=== PATIENT | male | born 1970 | race Caucasian/White ===

== ENCOUNTER 2016-09-09 16:43 | Emergency (ER) | payer MEDICAID ==
[2016-09-09 19:09] VITALS: TEMP 97.7; BMI 25.0
[2016-09-09 19:24] LABS: AUTOMATED BASOPHIL 1.5 % (0-2); AUTOMATED EOSINOPHIL 2.6 % (0-5); AUTOMATED LYMPH 24.7 % (17-44); AUTOMATED NEUTROPHIL 61.2 % (45-76); MPV 8.6 fL (7.4-10.4)
[2016-09-09 19:33] LABS: BLOOD UREA NITROGEN 8 MG/DL (9-20); CALCIUM 9.1 MG/DL (8.4-10.2); CALCULATED OSMOLALITY 267 MOs/Kg (270-290); CHLORIDE 101 mEq/L (98-107); ETOH-MGDL < 10 mg/dL; GLUCOSE 94 MG/DL (70-99); SODIUM LEVEL 140 mEq/L (137-146); TOTAL PROTEIN 7.6 G/DL (6.3-8.2)
[2016-09-09 19:42] LABS: ALL NEG? NO
[2016-09-09 19:49] LABS: MDMA* NEG (NEGATIVE); METHAMPHETAMINES NEG (NEGATIVE); OXYCODONE *POSITIVE* (NEGATIVE)
[2016-09-09 19:55] LABS: LEUKOCYTES/URINE NEG (NEGATIVE); NITRITE/URINE NEG (NEGATIVE); URINE OCCULT BLOOD NEG (NEG/TRACE)
--- NOTE | 2016-09-09 21:58 | EDPRACDOC ---
<HudsonGoldie - Last Filed: 09/09/16 23:39> - General Information Information Source: Patient Mode of Arrival: Law Enforcement - History of Present Illness Onset: 24 hrs SCARRER HPI: PT PRESENTS TO ED WITH IVC PAPERS FROM [facility] FOR 24HRS OF FREQUENT FALLS, CONFUSION MEMORY LOSS, RAMBLING CONVERSATION, WEAKNESS, CHANGE IN THOUGHTS ILLOGICAL THOUGHTS. NO FACIAL DROOPING OR SLURRED SPEECH AT THIS TIME. PT DOES HAVE PERIODS WHERE HE DOES NOT MAKE SENSE AND IS TALKING ABOUT SOMETHING COMPLETELY DIFFERENT THAN THE QUESTION ASKED. Reason for Seeking Treatment: Other (IVC BY Outside[facility]in.) Presents With: Reports: Unclear Thinking, Bizarre Behavior, Confusion Expresses: Reports: None Suicidal Plan: Reports: None Suicidal Attempt: Reports: N Stressors: Reports: None Relevant History: Reports: Other (SCHIZOAFFECTIVE BIPOLAR TYPE.) Medication Compliance: N/A Able to Care for Self: No Able to Control Self: No Associated Signs and Symptoms: Reports: Other (AMS, ILLOGICAL THOUGHTS, CONFUSION, FREQ FALLS IN LAST 24HRS.) <Bradley Bronson - Last Filed: 09/10/16 00:06> - General Information Chief Complaint: Psychiatric Illness Stated Complaint: IVP PSYCH EVAL Time Seen by Provider: 09/09/16 21:43 Home Medications: Home Medications Benztropine Mesylate 1 mg PO BID 09/09/16 Fenofibrate 160 mg PO QHS 09/09/16 Mirtazapine 45 mg PO HS 09/09/16 Nitroglycerin [Nitrostat] 0.4 mg SL [id number] PRN 09/09/16 Omeprazole 20 mg PO BID 09/09/16 Ondansetron HCl [Zofran] 8 mg PO Q8H PRN 09/09/16 Perphenazine 8 mg PO QID 09/09/16 Simvastatin 20 mg PO QHS 09/09/16 Trazodone HCl 150 mg PO DAILY PRN 09/09/16 Trazodone HCl 300 mg PO QHS 09/09/16 Allergies/Adverse Reactions: Allergies Allergy/AdvReac Type Severity Reaction Status Date / Time No Known Allergies Allergy Verified 07/19/14 03:19 ED Past Medical History - History Reviewed Yes Nurses notes reviewed and agree except as marked Travel Outside of [place] in the Last 3 Months?: No - Patient Medical History Cardiac History: Reports: Hypertension, Hypercholesterolemia Psychological History: Reports: Schizophrenia (SCHIZOAFFECTIVE BIPOLAR TYPE). Denies: Depression Systemic History: Denies: Cancer - Social Medical History Smoking Status: Heavy tobacco smoker (5 or more cigarettes/day or daily pipe/ cigar) ETOH: None Substance Abuse: None Lives With: Other Lives In: Home <Bradley Bronson - Last Filed: 09/10/16 00:06> EDM Review of Systems - Review of Systems ROS Negative Except as Marked: Yes All systems reviewed and were negative except as marked ROS Unobtainable: Yes Review of systems cannot be obtained due to the patient's medical condition (CONFUSION) Constitutional: Weakness. negative: Chills, Fever, Fatigue, Loss of Appetite Eyes: No Symptoms Reported. negative: Redness, Blurred Vision, Double Vision, Discharge, Pain, Light Sensitive, Photophobia Ears: No Symptoms Reported. negative: Pain, Hearing Loss, Drainage, Ear Pulling Throat: No Symptoms Reported. negative: Pain, Swelling Nose: No Symptoms Reported. negative: Congestion, Bleeding, Discharge, Injection, Swelling, Deformity, Ecchymosis, Tender, Abrasion, Laceration Mouth: No Symptoms Reported. negative: Pain, Drooling Respiratory: No Symptoms Reported. negative: Cough, Brassy Cough, Barky Cough, Shortness of Breath, Wheezing, Hemoptysis Cardiovascular: No Symptoms Reported. negative: Chest Pain, Palpitations, Syncope, Edema, Orthopnea, PND, Skin Mottling, Cyanosis Gastrointestinal: No Symptoms Reported. negative: Pain, Constipation, Nausea, Vomiting, Diarrhea, Melena, Formula Intolerance Genitourinary: No Symptoms Reported. negative: Dysuria, Hematuria, Frequency, Discharge, Bleeding, Testicular Pain, Neurological: Weakness, Mood Changes, Memory Changes, Changes in Orientation. negative: Dizziness, Gait Difficulty, Headache, Numbness, Seizure, Speech Difficulty Musculoskeletal: No Symptoms Reported. negative: Neck, Chestwall, Ribs, Back, Shoulder, Arm, Elbow, Forearm, Wrist, Hand, Pelvis, Hip, Femur, Knee, Leg, Ankle , Foot Integumentary: No Symptoms Reported. negative: Itching, Rash, Bruising, Wound Allergic/Immunologic: No Symptoms Reported. negative: Hives, Itching Hematologic: No Symptoms Reported. negative: Lymphadenopathy, Easy Bruising, Easy Bleeding Endocrine: No Symptoms Reported. negative: Weight Gain, Weight Loss Psychiatric: No Symptoms Reported. negative: Anxiety, Depression, Hallucinations, Insomnia, Suicidal <Bradley Bronson - Last Filed: 09/10/16 00:06> - Physical Exam Last recorded Vital Signs: Last Vital Signs Temp 97.7 F 09/09/16 17:35 Pulse 78 09/09/16 22:56 Resp 18 09/09/16 22:56 BP 104/78 09/09/16 22:56 Pulse Ox 94 09/09/16 22:56 Oxygen Pulse Oxygen Saturation 94 O2 Device Room Air Oxygen Flow Rate Fraction of Inspired Oxygen ( FIO2) <Goldie Hudson - Last Filed: 09/09/16 23:39> - Physical Exam Constitutional: Alert (Awake), Confused (MILD) Oriented to: Time, Person, Place Last recorded Vital Signs: Last Vital Signs Temp 97.7 F 09/09/16 17:35 Pulse 76 09/09/16 21:45 Resp 18 09/09/16 21:45 BP 124/83 09/09/16 21:45 Pulse Ox 98 09/09/16 21:45 Oxygen Pulse Oxygen Saturation 98 O2 Device Room Air Oxygen Flow Rate Fraction of Inspired Oxygen ( FIO2) - HEENT Head: Normal ( normocephalic) Eye Exam: Normal (PERRL, EOMI, Sclera white) Oropharynx: Normal (Pharynx:Moist without exudate,Gums-no swelling) Tympanic Membrane: Normal ENT EAC: Normal TMJ: Normal Nose: No Symptoms Reported (septum midline) Neck: Normal (FROM, trachea at midline) - Respiratory/Cardiovascular Respiratory: Other (COARSE BREATH SOUNDS) Cardiovascular: Normal (RRR without murmur, gallop or rub) - GI Auscultation: Normal (NABS) Palpation: Normal (Soft,No rebound or guarding, non distended) Tenderness: Non tender Etienne's Sign: Negative - Bladder: Normal - Musculoskeletal Back: Normal (Non-Tender) Extremities: Normal (Normal tone, Pulses 2+ No cyanosis or edema, FROM) - Integumentary Skin: Normal, Warm, Dry Lymphatics: Normal (no adenopathy) - Neurologic Memory Impaired: Short-term Motor Function: Abnormal (LEFT SIDE WEAKNESS) Cranial Nerve: Normal (CN II-X11 intact sensation, strength 5/5) Cerebellar: Past-Pointing (LEFT FINGER TO NOSE WAS SLOWER THAN RIGHT AND PT DID MISS MULTIPLE TIMES) Mood Description: Normal Thought: Coherent Perception: Normal <Bradley Bronson - Last Filed: 09/10/16 00:06> - Re-evaluation Re-evaluation 3 Re-evaluation Time: 23:55 ACUTE / MILD COGNITIVE CHANGES. BUT MY EXAM SHOWS THE PATIENT IS ALERT AND ORIENTED X4. ACTUALLY WELL INFORMED AND CAN CONVERSE WITH CURRENT EVENTS. WE SUSPECT HE HAS HAD A SMALL STROKE CONSIDERING LEFT SIDED WEAKNESS (MILD). WE HAVE RECOMMENDED INPATIENT EVALUATION, AND FACT HAVE CONSULTED INTERNAL MEDICINE, HOWEVER THE PATIENT DOES NOT WANT TO STAY IN THE HOSPITAL UNDER ANY GIVEN CIRCUMSTANCES. WHEN DISCUSSED WITH THE PATIENT THAT THE POSSIBILITY OF HIM GETTING WORSE AT HOME IS DISTINCTLY REAL, WHICH COULD CAUSE FALLING AND HEAD INJURY OR HIP FRACTURE OR OTHER INJURY, AND MAY RESULT IN . THE PATIENT STATES THERE ARE THINGS THAT ARE WORSENED THAT HE DOES NOT WANTS AN HOSPITAL FOR ANY GIVEN REASON HE WILL FOLLOW UP WITH HIS PCP TOMORROW AND STATES HE WILL TAKE HIS ASPIRIN DIRECTED AT HOME. THE PATIENT APPEARS TO BE CAPABLE OF MAKING AN INFORMED DECISION SHE HAS MADE AN INFORMED DECISION, HE DOES NOT WANT [facility] FOR [facility] CARE AT THIS TIME. IS ALERT AND ORIENTED, CURRENTLY HAVING NO HALLUCINATIONS WHATSOEVER, EITHER AUDITORY OR VISUAL. HAS NO INDICATION WITHDRAWAL SYNDROME. PATIENT IS CAPABLE MAKING A INFORMED DECISION HE HAS MADE 1 HE DOES NOT WANT STAY IN HOSPITAL. I SEE NO INDICATION TO HOLD THE PATIENT AGAINST HIS WILL. INVOLUNTARY COMMITMENT WAS TAKEN OUT EARLIER TODAY WILL BE REVERSED. AND THE PATIENT WILL BE ALLOWED TO BE DISCHARGED HOME WITH HIS FAMILY. - Results 09/09/16 19:11 09/09/16 19:11 WBC 11.7 xk/uL (3.8-10.8) H 09/09/16 19:11 RBC 4.98 xM/uL (4.70-6.10) 09/09/16 19:11 Hgb 14.6 g/dL (14.0-18.0) 09/09/16 19:11 Hct 44.3 % (42-52) 09/09/16 19:11 MCV 89 fL (80-94) 09/09/16 19:11 MCH 29.4 pg (27-32) 09/09/16 19:11 MCHC 33.0 g/dl (33-36) 09/09/16 19:11 RDW 12.8 % (11.5-14.5) 09/09/16 19:11 Plt Count 256 xk/uL (130-400) 09/09/16 19:11 MPV 8.6 fL (7.4-10.4) 09/09/16 19:11 Neut % (Auto) 61.2 % (45-76) 09/09/16 19:11 Lymph % (Auto) 24.7 % (17-44) 09/09/16 19:11 [place] % (Auto) 10.0 % (3-10) 09/09/16 19:11 Eos % (Auto) 2.6 % (0-5) 09/09/16 19:11 Baso % (Auto) 1.5 % (0-2) 09/09/16 19:11 Absolute Neuts (auto) 7.14 xk/uL (1.7-8.2) 09/09/16 19:11 Absolute Lymphs (auto) 2.81 xk/uL (0.65-4.75) 09/09/16 19:11 Sodium 140 mEq/L (137-146) 09/09/16 19:11 Potassium 3.7 mEq/L (3.5-5.1) 09/09/16 19:11 Chloride 101 mEq/L (98-107) 09/09/16 19:11 Carbon Dioxide 30 mMOL/L (22-33) 09/09/16 19:11 Anion Gap 13 mEq/L (8-16) 09/09/16 19:11 BUN 8 MG/DL (9-20) L 09/09/16 19:11 Creatinine 0.90 MG/DL (0.66-1.25) 09/09/16 19:11 Estimated GFR (MDRD) > 60 mL/min (>=60) 09/09/16 19:11 Glucose 94 MG/DL (70-99) 09/09/16 19:11 Calculated Osmolality 267 MOs/Kg (270-290) L 09/09/16 19:11 Calcium 9.1 MG/DL (8.4-10.2) 09/09/16 19:11 Total Bilirubin 0.5 MG/DL (0.2-1.3) 09/09/16 19:11 AST 32 IU/L (17-59) 09/09/16 19:11 ALT 32 IU/L (21-72) 09/09/16 19:11 Alkaline Phosphatase 45 IU/L (38-126) 09/09/16 19:11 Total Protein 7.6 G/DL (6.3-8.2) 09/09/16 19:11 Albumin 4.0 G/DL (3.5-5.0) 09/09/16 19:11 Urine Color Yellow 09/09/16 19:18 Urine Clarity Clear 09/09/16 19:18 Urine pH 6.0 (5.0-8.0) 09/09/16 19:18 Ur Specific [place] 1.010 (1.003-1.035) 09/09/16 19:18 Urine Protein Neg (NEG/TRACE) 09/09/16 19:18 Urine Glucose (UA) Neg (NEGATIVE) 09/09/16 19:18 Urine Ketones Neg (NEGATIVE) 09/09/16 19:18 Urine Occult Blood Neg (NEG/TRACE) 09/09/16 19:18 Urine Nitrite Neg (NEGATIVE) 09/09/16 19:18 Urine Bilirubin Neg (NEGATIVE) 09/09/16 19:18 Urine Urobilinogen <2.0 MG/DL (0-1) 09/09/16 19:18 Ur Leukocyte Esterase Neg (NEGATIVE) 09/09/16 19:18 Urine Opiates Screen Neg (NEGATIVE) 09/09/16 19:18 Ur Oxycodone Screen *positive* (NEGATIVE) H 09/09/16 19:18 Urine Methadone Screen Neg (NEGATIVE) 09/09/16 19:18 Ur Barbiturates Screen Neg (NEGATIVE) 09/09/16 19:18 Ur Tricyclics Screen Neg (NEGATIVE) 09/09/16 19:18 Ur Phencyclidine Scrn Neg (NEGATIVE) 09/09/16 19:18 Ur Amphetamines Screen Neg (NEGATIVE) 09/09/16 19:18 U Methamphetamines Scrn Neg (NEGATIVE) 09/09/16 19:18 Urine MDMA Screen Neg (NEGATIVE) 09/09/16 19:18 U Benzodiazepines Scrn *positive* (NEGATIVE) H 09/09/16 19:18 Urine Cocaine Screen Neg (NEGATIVE) 09/09/16 19:18 Ur THC Screen *positive* (NEGATIVE) H 09/09/16 19:18 Plasma/Serum Ethyl Alc % (<0.01) 09/09/16 19:11 Lab Results 09/09/16 09/09/16 09/09/16 19:18 19:18 19:11 WBC 11.7 H RBC 4.98 Hgb 14.6 Hct 44.3 MCV 89 MCH 29.4 MCHC 33.0 RDW 12.8 Plt Count 256 MPV 8.6 Neut % (Auto) 61.2 Lymph % (Auto) 24.7 [place] % (Auto) 10.0 Eos % (Auto) 2.6 Baso % (Auto) 1.5 Absolute Neuts (auto) 7.14 Absolute Lymphs (auto) 2.81 Sodium Potassium Chloride Carbon Dioxide Anion Gap BUN Creatinine Estimated GFR (MDRD) Glucose Calculated Osmolality Calcium Total Bilirubin AST ALT Alkaline Phosphatase Total Protein Albumin Urine Color Yellow Urine Clarity Clear Urine pH 6.0 Ur Specific [place] 1.010 Urine Protein Neg Urine Glucose (UA) Neg Urine Ketones Neg Urine Occult Blood Neg Urine Nitrite Neg Urine Bilirubin Neg Urine Urobilinogen <2.0 Ur Leukocyte Esterase Neg Urine Opiates Screen Neg Ur Oxycodone Screen *positive* H Urine Methadone Screen Neg Ur Barbiturates Screen Neg Ur Tricyclics Screen Neg Ur Phencyclidine Scrn Neg Ur Amphetamines Screen Neg U Methamphetamines Scrn Neg Urine MDMA Screen Neg U Benzodiazepines Scrn *positive* H Urine Cocaine Screen Neg Ur THC Screen *positive* H Plasma/Serum Ethyl Alc 09/09/16 19:11 WBC RBC Hgb Hct MCV MCH MCHC RDW Plt Count MPV Neut % (Auto) Lymph % (Auto) [place] % (Auto) Eos % (Auto) Baso % (Auto) Absolute Neuts (auto) Absolute Lymphs (auto) Sodium 140 Potassium 3.7 Chloride 101 Carbon Dioxide 30 Anion Gap 13 BUN 8 L Creatinine 0.90 Estimated GFR (MDRD) > 60 Glucose 94 Calculated Osmolality 267 L Calcium 9.1 Total Bilirubin 0.5 AST 32 ALT 32 Alkaline Phosphatase 45 Total Protein 7.6 Albumin 4.0 Urine Color Urine Clarity Urine pH Ur Specific [place] Urine Protein Urine Glucose (UA) Urine Ketones Urine Occult Blood Urine Nitrite Urine Bilirubin Urine Urobilinogen Ur Leukocyte Esterase Urine Opiates Screen Ur Oxycodone Screen Urine Methadone Screen Ur Barbiturates Screen Ur Tricyclics Screen Ur Phencyclidine Scrn Ur Amphetamines Screen U Methamphetamines Scrn Urine MDMA Screen U Benzodiazepines Scrn Urine Cocaine Screen Ur THC Screen Plasma/Serum Ethyl Alc - Diagnostic Imaging Head Image interpreted by: Radiologist Patient Name: LAVERNE BRONSON LOC: ED : 1970 AGE: 46 Order Date:09/09/16 Date of Service: Report # [id number] Ord Physician: Bradley Bronson Exam # [id number] Emergency Physician: Goldie Hudson MD Exam(s): [id number] CT/CT HEAD W/O CM CLINICAL DATA: Left-sided weakness. Altered speech. Frequent falls. Initial encounter. EXAM: CT HEAD WITHOUT CONTRAST TECHNIQUE: Contiguous axial images were obtained from the base of the skull through the vertex without intravenous contrast. COMPARISON: None. FINDINGS: There is no evidence of acute intracranial abnormality including hemorrhage, infarct, mass lesion, mass effect, midline shift or abnormal extra-axial fluid collection. No hydrocephalus or pneumocephalus. Minimal mucosal thickening right maxillary sinus is noted. Imaged paranasal sinuses and mastoid air cells are clear. IMPRESSION: Negative head CT. Electronically Signed By: Yuan Murguia M.D. On: 09/09/2016 22:51 Electronically Signed By: Yuan Branham MD Electronically Signed Date/Time: Dictate Date/Time: 09/09/162247 Technologist: Linda Vasquez Transcribed By: Ariadne Transcribed Date/Time: 09/09/16 188 <Goldie Hudson - Last Filed: 09/09/16 23:39> - Differential Diagnosis Anxiety, Depression, Other (CVA TIA) - Results 09/09/16 19:11 09/09/16 19:11 WBC 11.7 xk/uL (3.8-10.8) H 09/09/16 19:11 RBC 4.98 xM/uL (4.70-6.10) 09/09/16 19:11 Hgb 14.6 g/dL (14.0-18.0) 09/09/16 19:11 Hct 44.3 % (42-52) 09/09/16 19:11 MCV 89 fL (80-94) 09/09/16 19:11 MCH 29.4 pg (27-32) 09/09/16 19:11 MCHC 33.0 g/dl (33-36) 09/09/16 19:11 RDW 12.8 % (11.5-14.5) 09/09/16 19:11 Plt Count 256 xk/uL (130-400) 09/09/16 19:11 MPV 8.6 fL (7.4-10.4) 09/09/16 19:11 Neut % (Auto) 61.2 % (45-76) 09/09/16 19:11 Lymph % (Auto) 24.7 % (17-44) 09/09/16 19:11 [place] % (Auto) 10.0 % (3-10) 09/09/16 19:11 Eos % (Auto) 2.6 % (0-5) 09/09/16 19:11 Baso % (Auto) 1.5 % (0-2) 09/09/16 19:11 Absolute Neuts (auto) 7.14 xk/uL (1.7-8.2) 09/09/16 19:11 Absolute Lymphs (auto) 2.81 xk/uL (0.65-4.75) 09/09/16 19:11 Sodium 140 mEq/L (137-146) 09/09/16 19:11 Potassium 3.7 mEq/L (3.5-5.1) 09/09/16 19:11 Chloride 101 mEq/L (98-107) 09/09/16 19:11 Carbon Dioxide 30 mMOL/L (22-33) 09/09/16 19:11 Anion Gap 13 mEq/L (8-16) 09/09/16 19:11 BUN 8 MG/DL (9-20) L 09/09/16 19:11 Creatinine 0.90 MG/DL (0.66-1.25) 09/09/16 19:11 Estimated GFR (MDRD) > 60 mL/min (>=60) 09/09/16 19:11 Glucose 94 MG/DL (70-99) 09/09/16 19:11 Calculated Osmolality 267 MOs/Kg (270-290) L 09/09/16 19:11 Calcium 9.1 MG/DL (8.4-10.2) 09/09/16 19:11 Total Bilirubin 0.5 MG/DL (0.2-1.3) 09/09/16 19:11 AST 32 IU/L (17-59) 09/09/16 19:11 ALT 32 IU/L (21-72) 09/09/16 19:11 Alkaline Phosphatase 45 IU/L (38-126) 09/09/16 19:11 Total Protein 7.6 G/DL (6.3-8.2) 09/09/16 19:11 Albumin 4.0 G/DL (3.5-5.0) 09/09/16 19:11 Urine Color Yellow 09/09/16 19:18 Urine Clarity Clear 09/09/16 19:18 Urine pH 6.0 (5.0-8.0) 09/09/16 19:18 Ur Specific [place] 1.010 (1.003-1.035) 09/09/16 19:18 Urine Protein Neg (NEG/TRACE) 09/09/16 19:18 Urine Glucose (UA) Neg (NEGATIVE) 09/09/16 19:18 Urine Ketones Neg (NEGATIVE) 09/09/16 19:18 Urine Occult Blood Neg (NEG/TRACE) 09/09/16 19:18 Urine Nitrite Neg (NEGATIVE) 09/09/16 19:18 Urine Bilirubin Neg (NEGATIVE) 09/09/16 19:18 Urine Urobilinogen <2.0 MG/DL (0-1) 09/09/16 19:18 Ur Leukocyte Esterase Neg (NEGATIVE) 09/09/16 19:18 Urine Opiates Screen Neg (NEGATIVE) 09/09/16 19:18 Ur Oxycodone Screen *positive* (NEGATIVE) H 09/09/16 19:18 Urine Methadone Screen Neg (NEGATIVE) 09/09/16 19:18 Ur Barbiturates Screen Neg (NEGATIVE) 09/09/16 19:18 Ur Tricyclics Screen Neg (NEGATIVE) 09/09/16 19:18 Ur Phencyclidine Scrn Neg (NEGATIVE) 09/09/16 19:18 Ur Amphetamines Screen Neg (NEGATIVE) 09/09/16 19:18 U Methamphetamines Scrn Neg (NEGATIVE) 09/09/16 19:18 Urine MDMA Screen Neg (NEGATIVE) 09/09/16 19:18 U Benzodiazepines Scrn *positive* (NEGATIVE) H 09/09/16 19:18 Urine Cocaine Screen Neg (NEGATIVE) 09/09/16 19:18 Ur THC Screen *positive* (NEGATIVE) H 09/09/16 19:18 Plasma/Serum Ethyl Alc % (<0.01) 09/09/16 19:11 Lab Results 09/09/16 09/09/16 09/09/16 19:18 19:18 19:11 WBC 11.7 H RBC 4.98 Hgb 14.6 Hct 44.3 MCV 89 MCH 29.4 MCHC 33.0 RDW 12.8 Plt Count 256 MPV 8.6 Neut % (Auto) 61.2 Lymph % (Auto) 24.7 [place] % (Auto) 10.0 Eos % (Auto) 2.6 Baso % (Auto) 1.5 Absolute Neuts (auto) 7.14 Absolute Lymphs (auto) 2.81 Sodium Potassium Chloride Carbon Dioxide Anion Gap BUN Creatinine Estimated GFR (MDRD) Glucose Calculated Osmolality Calcium Total Bilirubin AST ALT Alkaline Phosphatase Total Protein Albumin Urine Color Yellow Urine Clarity Clear Urine pH 6.0 Ur Specific [place] 1.010 Urine Protein Neg Urine Glucose (UA) Neg Urine Ketones Neg Urine Occult Blood Neg Urine Nitrite Neg Urine Bilirubin Neg Urine Urobilinogen <2.0 Ur Leukocyte Esterase Neg Urine Opiates Screen Neg Ur Oxycodone Screen *positive* H Urine Methadone Screen Neg Ur Barbiturates Screen Neg Ur Tricyclics Screen Neg Ur Phencyclidine Scrn Neg Ur Amphetamines Screen Neg U Methamphetamines Scrn Neg Urine MDMA Screen Neg U Benzodiazepines Scrn *positive* H Urine Cocaine Screen Neg Ur THC Screen *positive* H Plasma/Serum Ethyl Alc 09/09/16 19:11 WBC RBC Hgb Hct MCV MCH MCHC RDW Plt Count MPV Neut % (Auto) Lymph % (Auto) [place] % (Auto) Eos % (Auto) Baso % (Auto) Absolute Neuts (auto) Absolute Lymphs (auto) Sodium 140 Potassium 3.7 Chloride 101 Carbon Dioxide 30 Anion Gap 13 BUN 8 L Creatinine 0.90 Estimated GFR (MDRD) > 60 Glucose 94 Calculated Osmolality 267 L Calcium 9.1 Total Bilirubin 0.5 AST 32 ALT 32 Alkaline Phosphatase 45 Total Protein 7.6 Albumin 4.0 Urine Color Urine Clarity Urine pH Ur Specific [place] Urine Protein Urine Glucose (UA) Urine Ketones Urine Occult Blood Urine Nitrite Urine Bilirubin Urine Urobilinogen Ur Leukocyte Esterase Urine Opiates Screen Ur Oxycodone Screen Urine Methadone Screen Ur Barbiturates Screen Ur Tricyclics Screen Ur Phencyclidine Scrn Ur Amphetamines Screen U Methamphetamines Scrn Urine MDMA Screen U Benzodiazepines Scrn Urine Cocaine Screen Ur THC Screen Plasma/Serum Ethyl Alc - Additional Information Additional Information: PT REFUSED MEDICAL ADMISSION, DISCUSSED WITH DR. HUDSON WHO ALSO SEEN AND EVALUATED THE PT. <Bradley Bronson - Last Filed: 09/10/16 00:06> - Departure Disposition: Home Education/Counseling Given To: Patient, Family Member Education/Counseling Given Regarding: Diagnosis, Treatment - Physician Consulted Hospitalist Time Called: 23:39 Provider Called: Magdi Ballard Time Android Framework Developer Returned Call: 23:56 (PT REFUSED ADMISSION) <Goldie Hudson - Last Filed: 09/09/16 23:39> Decision Time to Discharge: 00:06 <Bradley Bronson - Last Filed: 09/10/16 00:06> - Departure Condition: Stable Final Diagnosis: Acute CVA (cerebrovascular accident), Toxic metabolic encephalopathy Referrals: Alex Malone MD [Primary Care Provider] - One Week Additional Instructions: TAKE YOUR ASPIRIN EVERY DAY. NIH Stroke Scale Initial Evaluation Level of Consciousness: Alert LOC- Question: Answers Both Correctly LOC Commands: One Task Correctly Best Gaze: Normal Visual: No Visual Loss Facial Palsy: Normal Movement Motor Arm LEFT: Drift Motor Arm RIGHT: No Drift Motor Leg LEFT: Drift Motor Leg RIGHT: No Drift Sensory: Normal Best Language: No Aphasia Dysarthria: Normal Extinction and Inattention: No Abnormality (Neglect) <Bradley Bronson - Last Filed: 09/10/16 00:06>
[2016-09-09] MEDS ORDERED: SODIUM CHLORIDE 0.9% 3 ML FLUSH FLUSH PRN (22:11)
--- NOTE | 2016-09-09 22:42 | DIRPT ---
CLINICAL DATA: Frequent falls, confusion, memory loss, weakness, changes in thoughts over the last 24 hours. EXAM: PORTABLE CHEST 1 VIEW COMPARISON: 01/27/2013 FINDINGS: Normal heart size and pulmonary vascularity. Shallow inspiration with linear atelectasis in the left lung base. No focal airspace disease or consolidation. No blunting of costophrenic angles. No pneumothorax. Mediastinal contours appear intact. IMPRESSION: Shallow inspiration with atelectasis in the left lung base. Electronically Signed By: Oziel Ricketts M.D. On: 09/09/2016 22:40
--- NOTE | 2016-09-09 22:53 | DIRPT ---
CLINICAL DATA: Left-sided weakness. Altered speech. Frequent falls. Initial encounter. EXAM: CT HEAD WITHOUT CONTRAST TECHNIQUE: Contiguous axial images were obtained from the base of the skull through the vertex without intravenous contrast. COMPARISON: None. FINDINGS: There is no evidence of acute intracranial abnormality including hemorrhage, infarct, mass lesion, mass effect, midline shift or abnormal extra-axial fluid collection. No hydrocephalus or pneumocephalus. Minimal mucosal thickening right maxillary sinus is noted. Imaged paranasal sinuses and mastoid air cells are clear. IMPRESSION: Negative head CT. Electronically Signed By: Yuan Murguia M.D. On: 09/09/2016 22:51
[2016-09-09 23:20] LABS: PARTIAL THROMB. TIME 28.2 SEC (22-35)
[2016-09-09] MEDS ORDERED: ASPIRIN 300 MG SUPP PR ONE (23:38)
--- NOTE | 2016-09-09 23:43 | HISTPHYS ---
- Chief Complaint altered mental status - History of Present Illness PRIMARY CARE PROVIDER: Dr. Alex Malone HPI: The patient is a 46 yo man with schizoaffective disorder who was brought to the emergency department and was having difficulty with balance. He was found to have some left sided weakness. The emergency department physician was concerned the patient was having a stroke , and recommended admission. Was going to begin the admission process, but then the patient reported he refused to stay. The patient left against medical advice. - Medical History Cardiac History: Reports: Hypertension, Hypercholesterolemia Systemic History: Denies: Cancer Psychological History: Reports: Schizophrenia (SCHIZOAFFECTIVE BIPOLAR TYPE). Denies: Depression - Medictions/Allergies Allergies No Known Allergies Allergy (Verified 07/19/14 03:19) per pt Home Medications Benztropine Mesylate 1 mg PO BID 09/09/16 Fenofibrate 160 mg PO QHS 09/09/16 Mirtazapine 45 mg PO HS 09/09/16 Nitroglycerin [Nitrostat] 0.4 mg SL [id number] PRN 09/09/16 Omeprazole 20 mg PO BID 09/09/16 Ondansetron HCl [Zofran] 8 mg PO Q8H PRN 09/09/16 Perphenazine 8 mg PO QID 09/09/16 Simvastatin 20 mg PO QHS 09/09/16 Trazodone HCl 150 mg PO DAILY PRN 09/09/16 Trazodone HCl 300 mg PO QHS 09/09/16 - Social History Smoking Status: Heavy tobacco smoker (5 or more cigarettes/day or daily pipe/ cigar) - Physical Exam Vital Signs: Initial Vitals Temperature 97.7 F 09/09/16 17:35 Pulse Rate 75 09/09/16 17:35 Respiratory Rate 20 09/09/16 17:35 Blood Pressure 115/71 09/09/16 17:35 Pulse Oxygen Saturation 95 09/09/16 17:35
[2016-09-10 00:02] VITALS: BP 122/81; PULSE 79
[2016-09-10] MEDS ORDERED: SODIUM CHLORIDE 0.9% 3 ML FLUSH FLUSH SCH (06:00)
== END 2016-09-10 00:03 | disposition home or self-care (01) ==
LOC: ED 16:43
DX: I63.9 Cerebral infarction, unspecified (principal); G92 Toxic encephalopathy
CPT/HCPCS: 36415; 70450; 71010; 80053; 80307; 81001; 83874; 83880; 84484; 85025; 85610; 85730; 86592; 87040; 87086; 93005; 99285; J3490